=== PATIENT | female | born 1950 | race Caucasian/White ===

== ENCOUNTER → 2016-09-21 | Outpatient (CLI) | payer MEDICARE | END | disposition home or self-care (01) | LOC: GMAM 10:37 | PROVIDERS: ATTEND Family Medicine | DX: E53.8 Deficiency of other specified B group vitamins (principal); E55.9 Vitamin D deficiency, unspecified ==

== ENCOUNTER → 2017-02-23 | Outpatient (CLI) | payer MEDICARE | LOC: SL 21:11 | PROVIDERS: ATTEND Physician Assistant | DX: G47.10 Hypersomnia, unspecified (principal); F51.12 Insufficient sleep syndrome; G47.8 Other sleep disorders; I10 Essential (primary) hypertension ==

== ENCOUNTER → 2017-04-07 | Outpatient (CLI) | payer MEDICARE | LOC: GMAM 12:01 | PROVIDERS: ATTEND Family Medicine | DX: E53.8 Deficiency of other specified B group vitamins (principal); E55.9 Vitamin D deficiency, unspecified ==

== ENCOUNTER → 2017-04-10 | Outpatient (CLI) | payer MEDICARE | LOC: GMAM 16:43 | PROVIDERS: ATTEND Family Medicine | DX: D64.9 Anemia, unspecified (principal); M62.40 Contracture of muscle, unspecified site ==

== ENCOUNTER → 2017-07-14 | Outpatient (CLI) | payer MEDICARE | LOC: GMAM 11:53 | PROVIDERS: ATTEND Family Medicine | DX: E53.8 Deficiency of other specified B group vitamins (principal); E55.9 Vitamin D deficiency, unspecified ==

== ENCOUNTER → 2017-08-28 | Outpatient (CLI) | payer MEDICARE ==
--- NOTE | 2017-08-28 11:03 | CT ---
CT arthrogram left shoulder INDICATION: Shoulder pain status post fall initial encounter spinal stimulator contraindicating MRI TECHNIQUE: Helical CT images of the left shoulder post single contrast arthrogram with multiplanar reformats This exam was performed according to our departmental dose-optimization program, which includes automated exposure control, adjustment of the mA and/or kV according to patient size and/or use of iterative reconstruction technique. FINDINGS: No full-thickness tear of the supraspinatus or infraspinatus tendons. Moderate AC joint osteoarthrosis with vacuum phenomenon. No active dislocation however there is a fracture of the anterior inferior glenoid indicating osseous Bankart lesion grossly nondisplaced. The fragment measures approximately 25 mm craniocaudal by approximately 5 mm in width. No complete osseous bridging at this time. The osseous Bankart lesion is age-indeterminate correlate with previous episodes of instability. There is interstitial contrast within the subscapularis indicating injection artifact versus interstitial partial tear. Slight medialization long head bicep without complete rupture or dislocation. Mild glenohumeral osteoarthrosis is also noted. No separation of the AC joint. No coracoid fracture. No displaced rib fractures. No bursal contrast extension. There is medial contrast intravasation into the subscapularis muscle belly. IMPRESSION: Osseous Bankart lesion from previous anterior dislocation age indeterminate No full-thickness rotator cuff tear Moderate AC joint osteoarthrosis with vacuum phenomenon Interstitial contrast intravasation medial subscapularis related to capsular disruption or injection with interstitial contrast within the subscapularis as above Electronically signed by: Andrew Reese MD 08/28/2017 11:02 AM CDT
--- NOTE | 2017-08-28 13:24 | RAD ---
EXAM DESCRIPTION: Arthrogram Shoulder Left CLINICAL HISTORY: SHOULDER PAIN. Patient has neurostimulator. COMPARISON: Post-arthrogram CT scan of the left shoulder same date. TECHNIQUE: The procedure was explained to the patient with risks and benefits. The patient gave verbal and written consent. Patient supine on the fluoroscopic table with left shoulder in external rotation. The anterior mid superior left glenohumeral joint was localized by fluoroscopy. The skin was marked, then prepped and draped in a sterile fashion. Intradermal, subcutaneous and intramuscular 1% Xylocaine was given for topical anesthesia. A 3.5 inch, 25-gauge needle was introduced into the anterior superior left glenohumeral joint capsule under fluoroscopic visualization. The shoulder was moderately abducted due to patient body habitus. A test injection of 3 cc of mixture of non-ionic contrast was performed under fluoroscopy. Additional 8 CC of the contrast mixture of nonionic contrast and lidocaine was then injected under fluoroscopy. The patient tolerated the procedure well. Active exercise. Patient was transferred to the CT suite for spiral-axial and reconstruction imaging. No immediate complications. Single AP image of the left shoulder with abduction and external rotation obtained. Total fluoroscopic time was 1.4 minutes. DIP: 6.887 G-centimeters squared IMPRESSION: Successful, fluoroscopic-guided arthrography of the left shoulder prior to CT scan. Please refer to post arthrogram CT scan examination and report. Electronically signed by: Danilo Thomas MD 08/28/2017 1:22 PM CDT
== END ==
LOC: RAD 09:02
PROVIDERS: ATTEND Family Medicine
DX: M19.012 Primary osteoarthritis, left shoulder (principal); M89.9 Disorder of bone, unspecified; M25.519 Pain in unspecified shoulder

== ENCOUNTER → 2018-06-20 | Outpatient (CLI) | payer MEDICARE ==
--- NOTE | 2018-06-20 15:24 | RAD ---
EXAM DESCRIPTION: Arthrogram Shoulder Right: RF CLINICAL HISTORY: RIGHT SHOULDER PAIN COMPARISON: Post-arthrogram CT scan of the right shoulder same date. Arthrogram and post arthrogram CT of the left shoulder 08/28/2017. TECHNIQUE: The procedure was explained to the patient with risks and benefits. The patient gave verbal and written consent. Contrast mixture of 10 mL non-ionic 300 contrast and 10 mL of sterile normal saline was prepared. Patient supine on the fluoroscopic table with right shoulder in external rotation. The shoulder was almost 45 degrees abducted due to patient body habitus. The anterior mid superior right glenohumeral joint was localized by fluoroscopy. The skin was marked, then prepped and draped in a sterile fashion. Intradermal, subcutaneous and intramuscular 1% Xylocaine was given for topical anesthesia. A 5 cm 25-gauge needle was introduced into the anterior superior right glenohumeral joint capsule under fluoroscopic visualization. A test injection of 2 cc of non-ionic 300 strength contrast was performed under fluoroscopy. Additional 9 CC of contrast mixture was then injected under fluoroscopy. The patient tolerated the procedure well. Active exercise. Patient was transferred to the CT suite for spiral-axial and reconstruction imaging. No immediate complications. 2 frontal images recorded for the patient's permanent medical record. Total fluoroscopic time was 2.6 minutes DAP: 20.28 Gy-cm2. FINDINGS: The images show significant amount of contrast flowing into the subacromial-subdeltoid bursa indicating shannon tears of at least one of the rotator cuff tendons. IMPRESSION: Successful, fluoroscopic-guided arthrography of the right shoulder prior to CT scan. Probable tear of at least one rotator cuff tendon. Please refer to post right shoulder arthrogram CT scan examination and report. Electronically signed by: Danilo Thomas MD 06/20/2018 3:21 PM CDT
--- NOTE | 2018-06-20 15:46 | CT ---
CT arthrogram right shoulder INDICATION: Shoulder pain TECHNIQUE: Helical CT images the right shoulder post arthrogram with multiplanar reformats This exam was performed according to our departmental dose-optimization program, which includes automated exposure control, adjustment of the mA and/or kV according to patient size and/or use of iterative reconstruction technique. FINDINGS: Moderate AC joint osteoarthrosis with vacuum phenomenon and cystic change. There is a delaminating full-thickness tear from the junctional supraspinatus/infraspinatus to the anterior insertional supraspinatus near the rotator interval best visualized on the coronal and sagittal reformats. There is extension in a delaminating fashion into the infraspinatus tendon diffusely. These are structurally significant tears. Mild retraction of the supraspinatus tendon. There is a small subacromial enthesophyte. Minimal glenohumeral osteoarthrosis with mild degenerative labral changes. No subscapularis rupture or retraction. Limited visualization long head bicep. The visualized portions appear anatomic in location. There is scarring at the right lung apex. This is likely post inflammatory benign scarring but depending on risk factors baseline CT chest may be considered. Muscle atrophy is minimal grade 1 diffusely IMPRESSION: Full-thickness mildly retracted tear insertional supraspinatus with interstitial delamination into the infraspinatus tendon Mild glenohumeral osteoarthrosis Moderate AC joint osteoarthrosis Minimal muscle atrophy Electronically signed by: Andrew Reese MD 06/20/2018 3:43 PM CDT
== END ==
LOC: CT 09:07
PROVIDERS: ATTEND Family Medicine
DX: S46.011A Strain of muscle(s) and tendon(s) of the rotator cuff of right shoulder, initial encounter (principal); M19.011 Primary osteoarthritis, right shoulder; M62.511 Muscle wasting and atrophy, not elsewhere classified, right shoulder; I10 Essential (primary) hypertension

== ENCOUNTER → 2018-08-23 | Outpatient (CLI) | payer MEDICARE | LOC: GMAM 11:10 | PROVIDERS: ATTEND Family Medicine | DX: E53.8 Deficiency of other specified B group vitamins (principal); E55.9 Vitamin D deficiency, unspecified; M10.9 Gout, unspecified; I10 Essential (primary) hypertension; R73.9 Hyperglycemia, unspecified ==

== ENCOUNTER → 2018-08-28 | Outpatient (CLI) | payer MEDICARE | LOC: GMAM 13:01 | PROVIDERS: ATTEND Family Medicine | DX: E83.52 Hypercalcemia (principal) ==

== ENCOUNTER → 2019-03-26 | Outpatient (CLI) | payer MEDICARE ==
--- NOTE | 2019-03-26 10:50 | CT ---
EXAM DESCRIPTION: Abdomen w/wo Contrast CLINICAL HISTORY: 68 years Female, ABD PAIN COMPARISON: None. TECHNIQUE: Contiguous axial images through the abdomen were performed before and after intravenous contrast administration. Sagittal and coronal reconstructions were reviewed. This exam was performed according to our departmental dose-optimization program, which includes automated exposure control, adjustment of the mA and/or kV according to patient size and/or use of iterative reconstruction technique. FINDINGS: Visualized lower thorax appears normal. The liver, pancreas, spleen, bilateral adrenal glands and kidneys appear normal. Gallbladder is surgically absent. Mild reflux esophagitis. The stomach is not well-distended limiting detailed evaluation. The small bowel loops appear normal. Visualized colon demonstrates no gross intraluminal abnormality. Mild constipation. Abdominal aorta demonstrates mild atherosclerosis. Inferior vena cava is normal in size and caliber. 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 Chronic compression deformity of L1 vertebral body with approximately 30% loss of height. Mild degenerative changes are identified throughout the visualized spine. Pain stimulator leads are noted in the posterior epidural space of the thoracic spine. IMPRESSION: Mild reflux esophagitis. Otherwise no gross abnormality is noted in the visualized abdomen. Electronically signed by: Crystal Paige MD 03/26/2019 10:49 AM SEXTON HELPER
== END ==
LOC: CT 07:44
PROVIDERS: ATTEND Family Medicine
DX: K20.9 Esophagitis, unspecified (principal); M85.80 Other specified disorders of bone density and structure, unspecified site; R10.84 Generalized abdominal pain

== ENCOUNTER → 2019-03-29 | Outpatient (CLI) | payer MEDICARE | LOC: GMAM 12:26 | PROVIDERS: ATTEND Family Medicine | DX: R10.84 Generalized abdominal pain (principal) ==

== ENCOUNTER → 2019-04-10 | Outpatient (CLI) | payer MEDICARE ==
--- NOTE | 2019-04-11 19:50 | MAM ---
EXAM DESCRIPTION: 3D Screening BILATERAL : Digital Mammography. CLINICAL HISTORY: 68 years Female ANNUAL SCREENING . No complaints. No personal history of breast cancer. Remote family history of breast cancer. Menarche age 10. No childbirth. Menopause age 34. HRT 5 or more years ago. Lifetime risk of developing breast cancer (Tyrer-Cuzick model)(%): 6.4. COMPARISON: 2-D digital screening bilateral mammography November 2015. TECHNIQUE: Bilateral CC and MLO projection full-field images, digital tomosynthesis mammographic technique. Bilateral digital 2-D full-field MLO images. CAD available for 2-D images. FINDINGS: The breast parenchymal density pattern is: Heterogeneously dense breast tissue, which may obscure small masses. No skin thickening or nipple retraction. Nodular fibroglandular tissues. Bilateral solitary microcalcifications. More dense in the right breast in the left. Right axillary lymph nodes. No new focal, stellate mass or density, focal asymmetry , and no suspicious microcalcifications bilaterally. Stable mammograms compared to prior study. Taking into account, differences in mammographic technique. IMPRESSION: Benign exam. BIRAD CATEGORY: 2 BENIGN FINDINGS. RECOMMENDATIONS: FOLLOW UP: Routine digital bilateral mammographic screening, one year interval from March 2019. Written communication explaining the IMPRESSION and follow-up, will be mailed to the patient and referring health care provider. According to the [employer], yearly mammograms are recommended starting at age 40 and continuing as long as a woman is in good health. Any breast change noted on a breast self-exam should be reported promptly to the patient's healthcare provider. Breast MRI is recommended for women with an approximately 20-25% or greater lifetime risk of breast cancer, including women with a strong family history of breast or ovarian cancer and women who have been treated for Hodgkin's disease. A negative mammographic report should not delay tissue diagnosis in patients with significant clinical history or physical findings. Extremely dense breast tissue limits the sensitivity of digital mammography. Electronically signed by: Danilo Thomas MD 04/11/2019 7:49 PM CONTRACTS ANALYST
== END ==
LOC: MAMMO 10:20
PROVIDERS: ATTEND Family Medicine
DX: Z12.31 Encounter for screening mammogram for malignant neoplasm of breast (principal)

== ENCOUNTER 2019-05-01 05:25 | Day surgery (SDC) | payer MEDICARE ==
[2019-05-01] MEDS ORDERED: SODIUM CHLORIDE 0.9% 1000ML 1,000 ML ONE (06:00)
[2019-05-01] MEDS ORDERED: LIDOCAINE 1% 10 ML VIAL INJ ONE (07:00)
[2019-05-01] MEDS ORDERED: PROPOFOL 200 MG/20 ML VIAL IV ONE (07:00)
--- NOTE | 2019-05-01 08:47 | OP ---
DATE OF PROCEDURE: 05/01/19 PREOPERATIVE DIAGNOSIS: 1. Gastroesophageal reflux. 2. Personal history of tubular adenomas. POSTOPERATIVE DIAGNOSIS: 1. Small hiatal hernia. 2. Diverticulosis. 3. Internal hemorrhoids. PROCEDURE: 1. EGD. 2. Colonoscopy. SURGEON: Reji Reveles MD. ANESTHESIA: MAC. PROCEDURE: Informed consent was obtained prior to sedation. The preprocedure cardiopulmonary assessment was satisfactory. The patient was placed in the left lateral decubitus and was sedated. The tip of the Olympus gastroendoscope was inserted in the oropharynx and guided through the cricopharyngeus under direct visualization. The esophagus appeared normal. There was evidence of a small hiatal hernia seen on retroflexion and direct view. The stomach showed no major abnormality. The scope was advanced into the duodenum where the second portion and bulb appeared unremarkable. Slow withdrawal started at this time without further findings. The tip of the Olympus colonoscope was inserted in the rectum and guided through the entire colon under direct visualization. The ileocecal valve and appendiceal orifice were identified. Slow withdrawal showed evidence of fair to good prep. There was evidence of sigmoid diverticulosis with tortuosity and stricturing. Retroflexion view of the anorectal area showed evidence of internal hemorrhoid. The scope was then withdrawn from the patient and the procedure was terminated. RECOMMENDATION: 1. Discharge home. 2. Resume home medications. 3. Regular diet. 4. Regular activity. 5. Go to the Emergency Room if abnormal symptoms occur like abdominal pain, fever, rectal bleeding, nausea, vomiting or other. 6. Followup in my office in 2 weeks. #[id number] MTDD
[2019-05-01 08:53] VITALS: BP 130/69; O2SAT 98
[2019-05-01 09:36] VITALS: TEMP 97.6
== END 2019-05-01 09:30 | disposition home or self-care (01) ==
LOC: AMB 05:25
DX: K21.0 Gastro-esophageal reflux disease with esophagitis (principal); K57.30 Diverticulosis of large intestine without perforation or abscess without bleeding; K64.8 Other hemorrhoids; K44.9 Diaphragmatic hernia without obstruction or gangrene; E66.01 Morbid (severe) obesity due to excess calories; E78.00 Pure hypercholesterolemia, unspecified; F32.9 Major depressive disorder, single episode, unspecified; I10 Essential (primary) hypertension; Z86.010 Personal history of colon polyps; Z90.710 Acquired absence of both cervix and uterus; Z88.5 Allergy status to narcotic agent; Z68.42 Body mass index [BMI] 45.0-49.9, adult; Z79.899 Other long term (current) drug therapy
CPT/HCPCS: 00813; 43235; 45378; J3490; J7030

== ENCOUNTER → 2019-09-02 | Outpatient (CLI) | payer MEDICARE | LOC: GMAM 15:36 | PROVIDERS: ATTEND Family Medicine | DX: R19.7 Diarrhea, unspecified (principal); E86.0 Dehydration ==

== ENCOUNTER → 2019-11-14 | Outpatient (CLI) | payer MEDICARE | LOC: GMAM 10:34 | PROVIDERS: ATTEND Family Medicine | DX: E53.8 Deficiency of other specified B group vitamins (principal); M10.9 Gout, unspecified; E55.9 Vitamin D deficiency, unspecified; I10 Essential (primary) hypertension; E78.2 Mixed hyperlipidemia; E87.6 Hypokalemia ==